=== PATIENT | male | born 1995 | race Caucasian/White ===

== ENCOUNTER 2019-04-27 03:20 | Emergency (ER) | payer MEDICAID ==
[~2019-04-27] VITALS: Ht 167.6 cm; Wt 94.9 kg
[2019-04-27 04:12] VITALS: BP 138/79
== END 2019-04-27 07:40 | disposition left against medical advice (07) ==
LOC: ER 03:20
DX: R05 Cough (principal); R09.81 Nasal congestion; Z53.21 Procedure and treatment not carried out due to patient leaving prior to being seen by health care provider